=== PATIENT | male | born 1975 | race African-American/Black ===

== ENCOUNTER 2022-09-30 12:31 | Emergency (ER) | payer OTHER ==
[2022-09-30] MEDS ORDERED: Lidocaine/Epineph/Tetracaine 3 ML Syringe TOP ONE (16:02)
[2022-09-30] MEDS ORDERED: Lidocaine 1% with EPINEPHrine 1:100,000 10 ML MDV INJECT ONE (16:19)
[2022-09-30] MEDS ORDERED: Bacitracin Oint 1 GM U/D Packet TOP ONE (17:59)
== END 2022-09-30 18:58 | disposition home or self-care (01) ==
LOC: MW.ED 12:31
DX: S81.811A Laceration without foreign body, right lower leg, initial encounter (principal); Z91.018 Allergy to other foods; Z23 Encounter for immunization; W26.8XXA Contact with other sharp object(s), not elsewhere classified, initial encounter
CPT/HCPCS: 12001; 73590; 99283; A9270; J3490

== ENCOUNTER 2022-10-12 14:13 | Emergency (ER) | payer OTHER | END 2022-10-12 15:12 | disposition home or self-care (01) | LOC: MW.ED 14:13 | DX: T81.49XA Infection following a procedure, other surgical site, initial encounter (principal); Z91.013 Allergy to seafood; Z79.899 Other long term (current) drug therapy | CPT/HCPCS: 99282 ==